=== PATIENT | male | born 1975 | race Caucasian/White ===

== ENCOUNTER 2020-04-07 16:00 | Emergency (ER) | payer OTHER ==
[2020-04-07 16:29] VITALS: BP 137/87; PULSE 86; TEMP 97.8; BMI 40.4
== END 2020-04-07 17:25 | disposition home or self-care (01) ==
LOC: JERFT 16:00
DX: S20.212A Contusion of left front wall of thorax, initial encounter (principal)
CPT/HCPCS: 71046-TC-FY; 99283-25

== ENCOUNTER 2020-04-22 14:28 | Emergency (ER) | payer OTHER | END 2020-04-22 16:50 | disposition home or self-care (01) | LOC: JVIRT 14:28 | DX: U07.1 COVID-19 (principal) | CPT/HCPCS: C9803; Q3014-GT; U0003 ==

== ENCOUNTER 2024-06-01 12:33 | Day surgery (SDC) | payer BC ==
[2024-06-01] MEDS ORDERED: KETOROLAC TROMETHAMINE 15 MG/ML VIAL ONE (15:51)
[2024-06-01] MEDS: KETOROLAC TROMETHAMINE 15 MG/ML VIAL IVPUSH ONE (15:58)
[2024-06-01 16:10] LABS: INR 1.05 (0.83-1.09); PROTHROMBIN TIME (PATIENT) 12.1 SEC (9.7-13.0)
[2024-06-01] MEDS: CEFTRIAXONE 1 GM in DEXTROSE 5%-WATER - 100 ML IVPB ONE (16:31)
[2024-06-01] MEDS ORDERED: CEFTRIAXONE 1 G/50 ML PREMIX 50 ML IVPB ONE (16:32)
[2024-06-01] MEDS ORDERED: ACETAMINOPHEN 500 MG TABLET (FP) PO PRN (16:35)
[2024-06-01] MEDS ORDERED: KETOROLAC TROMETHAMINE 15 MG/ML VIAL IVPUSH PRN (16:36)
[2024-06-01 18:39] VITALS: BMI 40.9
[2024-06-01] MEDS: LACTATED RINGERS SOLUTION 1,000 ML/1,000 ML INFUS.BAG IV SCH (20:13)
[2024-06-01 23:18] LABS: HIV INTERPRETATION NEGATIVE (NEGATIVE)
[2024-06-02] MEDS ORDERED: PROPOFOL 40 ML ONE (09:31)
[2024-06-02] MEDS ORDERED: MIDAZOLAM HCL 2 MG/2 ML SINGLE DOSE VIAL ONE (09:31)
[2024-06-02] MEDS: ceFAZolin SODIUM 1 GM VIAL IVPB ONE ×2 (09:44)
[2024-06-02] MEDS ORDERED: GENTAMICIN SO4 80 MG/2 ML VIAL ONE (09:54)
[2024-06-02] MEDS: GENTAMICIN 80MG PREMIX BAG IVPB ONE (09:56)
[2024-06-02] MEDS: LACTATED RINGERS SOLUTION 1,000 ML IV SCH (10:36)
[2024-06-02] MEDS ORDERED: KETOROLAC TROMETHAMINE 15 MG/ML VIAL IVPUSH PRN (10:45)
[2024-06-02 11:16] VITALS: RESP 18
[2024-06-02] MEDS: HYDROCORTISONE 1% TOPICAL OINT 30 GM TUBE TP SCH (12:30)
[2024-06-02 13:42] VITALS: BP 122/85; PULSE 81; TEMP 97.9
[2024-06-03] MEDS ORDERED: HYDROCORTISONE 1% TOPICAL OINT 30 GM TUBE TP SCH (10:00)
[2024-06-17 10:23] LABS: CA OXALATE MONOHYDR. 100 % (.); WEIGHT 8 mg (.)
== END 2024-06-02 14:45 | disposition home or self-care (01) ==
LOC: JER 12:33 → UNDOADMOB 15:03 → JERBED 15:03 → JASUSAT 15:06 → JERBED 18:05 → J7W 18:05 → JASUSAT 06-02 14:45
PROVIDERS: ATTEND Internal Medicine
PROC: 0TC78ZZ Extirpation of Matter from Left Ureter, Via Natural or Artificial Opening Endoscopic (ICD-10-PCS; principal; 2024-06-01)
PROC: 0T778DZ Dilation of Left Ureter with Intraluminal Device, Via Natural or Artificial Opening Endoscopic (ICD-10-PCS; 2024-06-01)
PROC: BT1FYZZ Fluoroscopy of Left Kidney, Ureter and Bladder using Other Contrast (ICD-10-PCS; 2024-06-01)
DX: N20.1 Calculus of ureter (principal)
CPT/HCPCS: 36415; 74420-TC-FY; 76000-TC-FY; 82360; 85610; 85730; 86803; 86850; 86900; 86901; 87389; 88300-TC; 94760; 99285-25; C2617

== ENCOUNTER 2024-06-29 11:05 | Inpatient (IN) | payer BC ==
[2024-06-29 12:31] VITALS: BMI 39.3
[2024-06-29] MEDS: LACTATED RINGERS SOLUTION 1000 ML INFUS.BAG IV ONE (12:33)
[2024-06-29] MEDS ORDERED: MEROPENEM-0.9% SODIUM CHLORIDE 1 GM/50 ML BAG IVPB ONE (12:36)
[2024-06-29 12:42] LABS: BASO % 0.5 % (0-2.0); EOS % 1.1 % (0-4.5); HEMATOCRIT 33.8 % (35.4-49); HEMOGLOBIN 12.2 GM/dL (11.7-16.9); LYMPH % 14.8 % (8-40); MCH 29.9 pg (25.7-33.7); MCHC 36.2 g/dl (32.0-35.9); MEAN CELL VOLUME 82.6 fl (80-96); MONO % 6.9 % (3.8-10.2); NEUT % 76.7 % (42.8-82.8); PLATELET COUNT 233 10^3/uL (134-434); RBC 4.09 M/mm3 (4.00-5.60); RDW 14.5 % (11.9-15.9); WHITE BLOOD COUNT 8.4 K/mm3 (4.0-10.0)
[2024-06-29 12:48] LABS: PH,URINE 5.5 (5.0-8.0); URINE APPEARANCE CLEAR; URINE BILIRUBIN NEGATIVE (NEGATIVE); URINE COLOR YELLOW; URINE GLUCOSE (UA) NEGATIVE (NEGATIVE); URINE KETONE NEGATIVE (NEGATIVE); URINE LEUK ESTERASE NEGATIVE (NEGATIVE); URINE NITRITE NEGATIVE (NEGATIVE); URINE PROTEIN TRACE (NEGATIVE); URINE UROBILINOGEN 0.2 mg/dL (0.2-1.0)
[2024-06-29] MEDS: MEROPENEM 1 GM in DEXTROSE 5%-WATER 100 ML IVPB ONE (12:59)
[2024-06-29 13:04] LABS: BLOOD UREA NITROGEN 21.1 mg/dL (7-18); CALCIUM 9.2 mg/dL (8.5-10.1)
[2024-06-29 13:05] LABS: ALBUMIN 3.3 g/dl (3.4-5.0); MAGNESIUM 2.1 mg/dL (1.8-2.4)
[2024-06-29 13:08] LABS: PHOSPHOROUS 3.2 mg/dL (2.5-4.9)
[2024-06-29 13:09] LABS: BILIRUBIN,TOTAL 0.5 mg/dL (0.2-1); TOT PROT 7.3 g/dl (6.4-8.2)
[2024-06-29] MEDS ORDERED: ACETAMINOPHEN INJECTION 100 ML ONE (13:18)
[2024-06-29] MEDS: ACETAMINOPHEN 1000 MG/100 ML BAG IVPB ONE (13:38)
[2024-06-29 17:39] LABS: HIV INTERPRETATION NEGATIVE (NEGATIVE)
[2024-06-29] MEDS: ERTAPENEM SODIUM 1 GM in SODIUM CHLORIDE 50 ML IVPB SCH (21:28)
[2024-06-29] MEDS: ACETAMINOPHEN 1000 MG/100 ML BAG IVPB PRN (22:16)
[2024-06-30 07:50] LABS: BASO % 0.3 % (0-2.0); EOS % 1.3 % (0-4.5); HEMATOCRIT 36.2 % (35.4-49); LYMPH % 12.6 % (8-40); MCH 27.9 pg (25.7-33.7); MCHC 33.1 g/dl (32.0-35.9); MEAN CELL VOLUME 84.2 fl (80-96); MEAN PLT VOLUME 7.1 fl (7.5-11.1); MONO % 6.1 % (3.8-10.2); NEUT % 79.7 % (42.8-82.8); PLATELET COUNT 235 10^3/uL (134-434); RDW 14.8 % (11.9-15.9); WHITE BLOOD COUNT 8.9 K/mm3 (4.0-10.0)
[2024-06-30 08:06] LABS: POTASSIUM 4.2 mmol/L (3.5-5.1)
[2024-06-30 08:09] LABS: CALCIUM 9.1 mg/dL (8.5-10.1)
[2024-06-30 08:10] LABS: ALBUMIN 3.2 g/dl (3.4-5.0); MAGNESIUM 1.9 mg/dL (1.8-2.4)
[2024-06-30 08:13] LABS: CREATININE 0.9 mg/dL (0.55-1.3); PHOSPHOROUS 2.8 mg/dL (2.5-4.9)
[2024-06-30 08:15] LABS: BILIRUBIN,TOTAL 0.2 mg/dL (0.2-1); TOT PROT 6.8 g/dl (6.4-8.2)
[2024-06-30] MEDS: ENOXAPARIN NA (PORCINE) 40 MG/0.4 ML DISP.SYRIN SQ SCH (09:15)
[2024-07-01] MEDS: MEROPENEM-0.9% SODIUM CHLORIDE 1 GM/50 ML BAG IVPB SCH (01:58)
[2024-07-01 07:49] LABS: HEMATOCRIT 37.5 % (35.4-49); HEMOGLOBIN 12.2 GM/dL (11.7-16.9); MCH 27.4 pg (25.7-33.7); MCHC 32.6 g/dl (32.0-35.9); MEAN PLT VOLUME 7.1 fl (7.5-11.1); PLATELET COUNT 256 10^3/uL (134-434); RBC 4.47 M/mm3 (4.00-5.60); RDW 14.6 % (11.9-15.9)
[2024-07-01 08:05] LABS: POTASSIUM 4.4 mmol/L (3.5-5.1)
[2024-07-01 08:08] LABS: ALBUMIN 3.2 g/dl (3.4-5.0); BLOOD UREA NITROGEN 19.9 mg/dL (7-18)
[2024-07-01 08:11] LABS: CREATININE 0.9 mg/dL (0.55-1.3)
[2024-07-01 08:13] LABS: BILIRUBIN,TOTAL 0.3 mg/dL (0.2-1); TOT PROT 7.1 g/dl (6.4-8.2)
[2024-07-02 08:07] LABS: HEMATOCRIT 37.6 % (35.4-49); HEMOGLOBIN 12.6 GM/dL (11.7-16.9); MCHC 33.6 g/dl (32.0-35.9); MEAN CELL VOLUME 83.4 fl (80-96); MEAN PLT VOLUME 6.8 fl (7.5-11.1); PLATELET COUNT 257 10^3/uL (134-434); RDW 14.5 % (11.9-15.9)
[2024-07-02 08:29] LABS: POTASSIUM 4.6 mmol/L (3.5-5.1)
[2024-07-02 08:31] LABS: CALCIUM 9.1 mg/dL (8.5-10.1)
[2024-07-02 08:32] LABS: ALBUMIN 3.3 g/dl (3.4-5.0); BLOOD UREA NITROGEN 20.5 mg/dL (7-18)
[2024-07-02 08:35] LABS: CREATININE 0.8 mg/dL (0.55-1.3)
[2024-07-02 08:36] LABS: BILIRUBIN,TOTAL 0.5 mg/dL (0.2-1); TOT PROT 7.1 g/dl (6.4-8.2)
[2024-07-03 07:22] VITALS: RESP 18
[2024-07-03 08:57] LABS: HEMATOCRIT 36.9 % (35.4-49); HEMOGLOBIN 12.6 GM/dL (11.7-16.9); MCH 28.6 pg (25.7-33.7); MCHC 34.1 g/dl (32.0-35.9); MEAN PLT VOLUME 6.9 fl (7.5-11.1); PLATELET COUNT 275 10^3/uL (134-434); RBC 4.39 M/mm3 (4.00-5.60); RDW 14.3 % (11.9-15.9)
[2024-07-03 09:21] LABS: POTASSIUM 4.8 mmol/L (3.5-5.1)
[2024-07-03 09:24] LABS: ALBUMIN 3.3 g/dl (3.4-5.0); BLOOD UREA NITROGEN 18.8 mg/dL (7-18); CALCIUM 9.1 mg/dL (8.5-10.1)
[2024-07-03 09:28] LABS: CREATININE 0.9 mg/dL (0.55-1.3)
[2024-07-03 09:29] LABS: BILIRUBIN,TOTAL 0.4 mg/dL (0.2-1); TOT PROT 7.2 g/dl (6.4-8.2)
[2024-07-03] MEDS: ERTAPENEM SODIUM 1 GM in SODIUM CHLORIDE 50 ML IVPB SCH (09:42)
[2024-07-03 13:12] VITALS: BP 122/79; PULSE 78; TEMP 98.1
== END 2024-07-03 13:16 | disposition home health service (06) | DRG 728 ==
LOC: JER 11:05 → JERBED 16:48 → J6S 18:49 → J7W 20:50
PROVIDERS: ADMIT Internal Medicine; ATTEND Physician Assistant
PROC: 05HY33Z Insertion of Infusion Device into Upper Vein, Percutaneous Approach (ICD-10-PCS; principal; 2024-07-03)
DX: N45.3 Epididymo-orchitis (principal); N43.3 Hydrocele, unspecified; I86.1 Scrotal varices
CPT/HCPCS: 36415; 36569; 76870-TC; 80053; 81003; 83735; 84100; 85025; 85027; 86803; 87040; 87086; 87389; 87491; 87591; 93005; 93010; 99285-25; J0131

== ENCOUNTER 2024-10-21 06:21 | Day surgery (SDC) | payer BC ==
[2024-10-20 11:52] VITALS: BMI 39.0
[2024-10-21 07:31] VITALS: PULSE 74
[2024-10-21 11:14] VITALS: BP 112/61; RESP 22; TEMP 97.7
== END 2024-10-21 09:30 | disposition home or self-care (01) ==
LOC: JASU-ENDO 06:21
PROVIDERS: ATTEND Internal Medicine Gastroenterology
PROC: 0DBH8ZZ Excision of Cecum, Via Natural or Artificial Opening Endoscopic (ICD-10-PCS; principal; 2024-10-21 08:00)
DX: Z12.11 Encounter for screening for malignant neoplasm of colon (principal); D12.0 Benign neoplasm of cecum; D12.8 Benign neoplasm of rectum; K64.8 Other hemorrhoids
CPT/HCPCS: 88305-TC